=== PATIENT | female | born 2000 | race Two or more races ===

== ENCOUNTER 2025-04-28 19:33 | Emergency (ER) | payer OTHER, SELFPAY ==
[2025-04-28 19:34] VITALS: BMI 36.8
[2025-04-28 19:58] VITALS: BP 138/85; PULSE 83; RESP 16; TEMP 37.2; O2SAT 99
--- NOTE | 2025-04-28 20:07 | EDNOTE_ITS ---
Upper Extremity Injury RME/HPI General Chief Complaint: Hand/Wrist Problems Stated Complaint: SMASHED LEFT HAND AT WORK Time Seen by Provider: 04/28/25 19:44 Source: patient, RN notes reviewed and old records reviewed Arrival date/time: 04/28/25 19:33 Mode of arrival: ambulatory Limitations: no limitations RME / HPI RME / HPI narrative: 24yof presents to ED for hand pain s/p injury at work today. Patient states her left hand got smashed between a ladder rung, c/o pain and swelling. No deformity reported. 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 Related Data Home Medications ?Medication ?Instructions ?Recorded ?Confirmed norgestimate 0.25 mg-ethinyl 1 tab PO QDAY 03/13/21 estradiol 0.035 mg tablet (Femynor) Previous Rx's ?Medication ?Instructions ?Recorded ibuprofen 800 mg tablet 800 mg PO TID PRN pain #30 t abs 03/13/21 ibuprofen 600 mg tablet 600 mg PO Q6H PRN pain #20 t abs 04/28/25 Allergies Allergy/AdvReac Type Severity Reaction Status Date / Time No Known Allergies Allergy Verified 04/28/25 19:34 Review of Systems Review of Systems Systems Reviewed: All systems reviewed, normal except as documented Musculoskeletal Musculoskeletal: Reports arthralgias, Denies deformity, Reports joint swelling, Reports limited range of motion, Denies numbness and Denies tingling Neurologic Neurologic: Denies numbness and Denies tingling Past Medical History Past Medical History GASTROINTESTINAL: Positive Obesity Surgical History OTHER SURGICAL HX: denies pshx Social History SMOKING STATUS: Never smoker SUBSTANCE USE: does not use ALCOHOL: Never ED Exam General Limitations: Present no limitations General appearance: Present alert and in no apparent distress Head Head exam: Present atraumatic and normocephalic Eye Eye exam: Present normal appearance, PERRL and EOMI ENT ENT exam: Present normal exam and mucous membranes moist Neck Neck exam: Present normal inspection and full ROM Chest Chest inspection: Present normal inspection and symmetric chest wall rise Respiratory Respiratory exam: Present normal lung sounds bilaterally; Absent respiratory distress Cardiovascular Cardiovascular exam: Present regular rate and normal rhythm Extremities Exam Extremities exam: Present other (Tenderness, mild swelling over dorsal left hand . Limited ROM 2/2 pain. 2+ radial pulse, <2s cap refill. Sensation intact distally) Neurological Exam Neurological exam: Present alert and oriented X3 Psychiatric Psychiatric exam: Present normal affect and normal mood Skin Skin exam: Present warm, dry, intact and normal color Course Quality Measures none Orders Category Date Time Status daren wrap [Splint / Immobilizer] STAT Care 04/28/25 21:54 Completed XR hand comp LT min 3V Stat Exams 04/28/25 20:07 Completed HYDROcodone*/APAP 5/325 [Novi 5/325] Med 04/28/25 20:07 Discontinued 1 tab PO X1 ONE Vital Signs Vital signs: Vital Signs Temperature 98.9 F 04/28/25 19:58 Pulse Rate 83 04/28/25 19:58 Respiratory Rate 16 04/28/25 19:58 Blood Pressure 138/85 H 04/28/25 19:58 Pulse Oximetry (%) 99 04/28/25 19:58 Oxygen Delivery Method Room Air 04/28/25 19:58 Extremity Injury MDM Narrative MDM Narrative:: 24yof presents to ED for hand pain s/p injury at work today. Patient states her left hand got smashed between a ladder rung, c/o pain and swelling. No deformity reported. 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 Patient is neurovascularly intact, compartments soft. Encouraged RICE therapy, motrin/tylenol prn pain. Stable for dc, RTED precautions given. Patient data External records reviewed:: [facility] previous records ( ED visit for headache) Clinical information provided by:: patient Social determinants that could affect healthcare access:: other (specify) (Poor access to healthcare) Patient has the following chronic illnesses:: Obesity How is presenting disease/condition affected by chronic disease/condition?: uneffected by Evaluation data The following diagnostics were reviewed and interpreted by me:: radiology exam(s) Lab and/or radiology exams considered but not ordered:: None Interpretation Summary: Hand x-rays: No fracture per my read Medications / Prescriptions Medications or Prescriptions considered but not ordered:: None Medication administrations:: Medication Administration History Discontinued Medications Hydrocodone Bitart/Acetaminophen (Hydrocodone/Apap 5/325 Tablet) 1 tab PO X1 ONE Stop: 04/28/25 20:08 Last Admin: 04/28/25 20:24 Dose: 1 tab Documented By: Above medication administered in ED Consultations Consultation(s) initiated? (list below): No Diagnosis Upper Extremity Injury Differential Diagnosis: other (Fracture, dislocation, sprain, strain, contusion, MSK pain) Most likely diagnosis given after review of the tests above:: Hand contusion Admission Indicated Admission indicated?: not indicated Admission Request Was there a request for admission?: No Disposition Plan Disposition Plan: Discharge Discharge Attestation Discharge Attestation: The patient and all family members were given an opportunity to ask questions and understood the discharge instructions. Discharge instructions specifically effects, indications for sooner follow up or return to the emergency department, and the expected course of current diagnosis. Patient condition: Stable Discharge Plan Plan Patient Disposition: HOME (Self Care) Patient condition on transfer: Stable Prescriptions/Referrals Prescriptions/Med Rec: New ibuprofen 600 mg tablet 600 mg PO Q6H PRN (Reason: pain) Qty: 20 0RF No Action norgestimate-ethinyl estradiol [Femynor] 0.25-35 mg-mcg tablet 1 tab PO QDAY Patient Comments: TAKE 1 TABLET BY MOUTH EVERY DAY ibuprofen 800 mg tablet 800 mg PO TID PRN (Reason: pain) Qty: 30 0RF Referrals: Rashard Dowell FNP [Primary Care Provider] - In 1 week Problem List Clinical Impression: Contusion of left hand Patient/Caregiver Discharge Instructions Education Materials: ED Hand Contusion Print Language: [place] Stand Alone Forms: Leigh Ann Award Info., Patient Portal Info Letter CYNDIE/KENISHA Supervising Physician CYNDIE/KENISHA Supervising Physician: Eddie
--- NOTE | 2025-04-28 20:07 | XR_ITS ---
Examination: Hand, left 3 views Technique: Hand AP, oblique, lateral 3 views Date and time of exam: April 28, 2025, 2006 hours INDICATIONS: Injury to the hand today, hand pain. FINDINGS: No acute fracture. No dislocation No foreign body IMPRESSION: No acute fracture
[2025-04-28] MEDS: HYDROcodone/APAP 5/325 TABLET 1 TAB PO (20:24)
== END 2025-04-28 22:14 | disposition home or self-care (01) ==
PROVIDERS: Emergency Provider Emergency Medicine; PCP Nurse Practitioner Family
DX: S60.222A Contusion of left hand, initial encounter (principal); W23.0XXA Caught, crushed, jammed, or pinched between moving objects, initial encounter
CPT/HCPCS: 73130; 99283; A9270